=== PATIENT | female | born 1980 | race American Indian/Alaskan Native ===

== ENCOUNTER 2017-03-20 18:10 | Emergency (ER) | payer OTHER, BC ==
[2017-03-20 19:24] VITALS: BP 93/66
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
[2017-03-20] MEDS ORDERED: FLEXERIL PO ONE (22:06)
[2017-03-20] MEDS ORDERED: NORCO 5/325 PO ONE (22:06)
== END 2017-03-20 22:57 | disposition home or self-care (01) ==
LOC: ED 18:10
DX: G44.309 Post-traumatic headache, unspecified, not intractable (principal); M25.511 Pain in right shoulder; S09.90XA Unspecified injury of head, initial encounter; E03.9 Hypothyroidism, unspecified; Z88.0 Allergy status to penicillin; V43.52XA Car driver injured in collision with other type car in traffic accident, initial encounter; Y93.89 Activity, other specified; Y92.89 Other specified places as the place of occurrence of the external cause; Y99.8 Other external cause status
CPT/HCPCS: 99282